=== PATIENT | male | born 1965 | race Two or more races ===

== ENCOUNTER 2023-06-20 10:06 | Outpatient (CLI) | payer OTHER | END 2023-06-20 10:12 | disposition home or self-care (01) | LOC: TOM 10:06 | PROVIDERS: ATTEND Internal Medicine Gastroenterology | DX: Z12.11 Encounter for screening for malignant neoplasm of colon (principal); K56.50 Intestinal adhesions [bands], unspecified as to partial versus complete obstruction; G40.909 Epilepsy, unspecified, not intractable, without status epilepticus; I63.9 Cerebral infarction, unspecified; I72.9 Aneurysm of unspecified site ==